=== PATIENT | female | born 1990 | race Two or more races ===

== ENCOUNTER 2021-02-01 11:43 | Day surgery (SDC) | payer BC ==
[~2021-02-01] VITALS: Ht 149.9 cm; Wt 94.9 kg
[2021-02-01 12:27] VITALS: BP 109/74
[2021-02-01] MEDS ORDERED: CHLORHEXIDINE 15 ML UDC PO ONE (12:30)
[2021-02-01] MEDS ORDERED: LACTATED RINGERS 1,000 ML IV SCH (12:30)
[2021-02-01] MEDS ORDERED: MIDAZOLAM 1 MG/ML, 2ML ONE (12:33)
[2021-02-01] MEDS ORDERED: HYDROmorphone 1 MG/ML, 1ML INJ ONE ×3 (12:33→16:42)
[2021-02-01] MEDS ORDERED: FENTANYL PF 100 MCG/2ML ONE (12:34)
[2021-02-01 12:41] LABS: HCG UR SG 1.012 (1.003-1.030)
[2021-02-01] MEDS ORDERED: EPINEPHRINE 1 MG/ML, 1ML ONE (13:34)
[2021-02-01] MEDS ORDERED: BUPIVACAINE/PF 0.5% ONE (13:34)
[2021-02-01] MEDS ORDERED: PROMETHAZINE 25 MG/ML, 1ML IVPush PRN (14:00)
[2021-02-01] MEDS ORDERED: HYDROmorphone 1 MG/ML, 1ML INJ IVPush PRN (14:00)
[2021-02-01] MEDS ORDERED: KETOROLAC 30 MG/1 ML IVPush PRN (14:00)
[2021-02-01] MEDS ORDERED: LABETALOL 5MG/ML, 20ML IV PRN (14:00)
[2021-02-01] MEDS ORDERED: ONDANSETRON 2MG/ML, 2ML IVPush PRN (14:00)
[2021-02-01] MEDS ORDERED: FENTANYL PF 100 MCG/2ML IV PRN (14:00)
[2021-02-01] MEDS ORDERED: DIPHENHYDRAMINE 50 MG/ML, 1ML IVPush PRN (14:00)
[2021-02-01] MEDS ORDERED: METOPROLOL 1 MG/ML, 5ML IV PRN (14:00)
[2021-02-01] MEDS ORDERED: DIAZEPAM 5 MG/ML, 2ML IVPush PRN (14:00)
[2021-02-01] MEDS ORDERED: hydrALAzine 20 MG/ML, 1ML IV PRN (14:00)
[2021-02-01] MEDS ORDERED: MEPERIDINE/PF 25MG/0.5ML IVPush PRN (14:00)
[2021-02-01] MEDS ORDERED: ACETAMINOPHEN 325 MG TABLET PO PRN (14:00)
[2021-02-01] MEDS ORDERED: METOCLOPRAMIDE 5 MG/ML, 2ML IVPush PRN (14:00)
[2021-02-01] MEDS ORDERED: EPHEDRINE 50 MG/ML, 1ML IVPush PRN (14:00)
[2021-02-01] MEDS ORDERED: OXYcodone 5 MG/5 ML ORAL.SOL UDC PO PRN (14:00)
[2021-02-01] MEDS ORDERED: HALOPERIDOL 5 MG/ML IV PRN (14:00)
[2021-02-01] MEDS ORDERED: OXYcodone 5 MG/5 ML ORAL.SOL UDC ONE (16:42)
[2021-02-01] MEDS ORDERED: HYDR-2214 PO (16:54)
[2021-02-01] MEDS ORDERED: ONDA4TAB7 PO (16:54)
== END 2021-02-01 20:15 | disposition home or self-care (01) ==
LOC: OUT 11:43
PROVIDERS: ATTEND Surgery
DX: K43.6 Other and unspecified ventral hernia with obstruction, without gangrene (principal); K42.0 Umbilical hernia with obstruction, without gangrene; E66.01 Morbid (severe) obesity due to excess calories; Z68.41 Body mass index [BMI] 40.0-44.9, adult; Z20.822 Contact with and (suspected) exposure to COVID-19; Z79.899 Other long term (current) drug therapy; Z82.49 Family history of ischemic heart disease and other diseases of the circulatory system; Z82.3 Family history of stroke
CPT/HCPCS: 49653; 81025; 87635; C1781; J0171; J1170; J1885; J2250; J2405; J3010; J7120